=== PATIENT | female | born 1980 | race Caucasian/White ===

== ENCOUNTER 2018-11-20 13:35 | Emergency (ER) | payer BC ==
[~2018-11-20] VITALS: Ht 175.3 cm; Wt 88.6 kg
[~2018-11-20 13:35] MED LIST: SYNTHROID 0.10.15 MG PO
[2018-11-20 13:40] VITALS: TEMP 98.1
[2018-11-20] MEDS ORDERED: TIROSINT137 MC1 PO (14:21)
[2018-11-20 14:35] LABS: COLLECTION METHOD CLEAN CATCH
[2018-11-20 14:52] LABS: PH 8 (5-8); SQUAMOUS EPITHELIAL 0-2 /hpf; URINE APPEARANCE Clear; URINE BACTERIA Rare /hpf; URINE BILIRUBIN Negative (NEGATIVE); URINE BLOOD 2+ (NEGATIVE); URINE COLOR Straw; URINE GLUCOSE Negative (NEGATIVE); URINE KETONE Negative (NEGATIVE); URINE LEUKOCYTE ESTERASE Negative (NEGATIVE); URINE NITRATE Negative (NEGATIVE); URINE PROTEIN(semi-quant) Negative (NEGATIVE); URINE RBC 0-2 /hpf; URINE UROBILINOGEN Negative (NEGATIVE)
[2018-11-20 14:59] LABS: BASO % 0.6 % (0.0-2.0); EOS # 0.2 (0.0-0.7); EOS % 2.2 % (0-4.0); GRAN # 5.3 (1.4-6.5); GRAN % 73.1 % (42.2-75.2); HEMATOCRIT 40.3 % (37.0-47.0); HEMOGLOBIN 13.6 g/dl (12.5-16.0); LYMPH # 1.3 (1.2-3.4); LYMPH % 17.4 % (20.0-51.0); MEAN CELL VOLUME 92 fl (80.0-100.0); MEAN CORPUSCULAR HEMOGLOBIN 31 pg (27.0-31.0); MEAN CORPUSCULAR HGB CONC 34 g/dl (33.0-37.0); MEAN PLATELET VOLUME 11.9 fl (7.4-10.4); MONO # 0.5 (0.1-0.6); MONO % 6.6 % (1.7-9.3); PLATELET COUNT 189 K/mm3 (130-400); RED BLOOD COUNT 4.36 M/mm3 (4.10-5.30); REDCELL DISTRIBUTION WIDTH-CV 12.2 % (11.5-14.5)
[2018-11-20 15:17] LABS: ALBUMIN 3.9 gm/dL (3.5-5.0); BILIRUBIN,TOTAL 0.5 mg/dL (0.0-1.0); CALCIUM 9.1 mg/dL (8.4-10.2); CREATININE, serum 0.94 (0.52-1.25); POTASSIUM 4.1 mmol/L (3.4-5.0); TOTAL PROTEIN 6.6 gm/dL (6.4-8.2)
[2018-11-20 15:47] LABS: TSH w REFLEX 2.55 uIU/mL (0.465-4.680)
[2018-11-20 16:21] VITALS: BP 108/65; PULSE 62
[2018-11-20 22:35] LABS: TRICYCLIC ANTIDEPRESS URINE NEGATIVE
== END 2018-11-20 16:15 | disposition home or self-care (01) ==
LOC: COL.ER 13:35
PROVIDERS: Emergency Medicine
DX: R41.0 Disorientation, unspecified (principal); E03.9 Hypothyroidism, unspecified; G43.909 Migraine, unspecified, not intractable, without status migrainosus; F17.210 Nicotine dependence, cigarettes, uncomplicated; Z98.890 Other specified postprocedural states; Z87.81 Personal history of (healed) traumatic fracture

== ENCOUNTER 2018-11-23 00:32 | Emergency (ER) | payer BC ==
[~2018-11-23] VITALS: Ht 172.7 cm; Wt 90.9 kg
[~2018-11-23 00:32] MED LIST changes: +TIROSINT137 MC1 PO
[2018-11-23 00:40] VITALS: BP 132/86; TEMP 98
[2018-11-23 01:25] LABS: BASO % 0.5 % (0.0-2.0); EOS # 0.2 (0.0-0.7); EOS % 2.6 % (0-4.0); GRAN # 5.2 (1.4-6.5); GRAN % 62.4 % (42.2-75.2); HEMATOCRIT 41.9 % (37.0-47.0); HEMOGLOBIN 14.1 g/dl (12.5-16.0); LYMPH # 2.3 (1.2-3.4); LYMPH % 27.7 % (20.0-51.0); MEAN CELL VOLUME 92 fl (80.0-100.0); MEAN CORPUSCULAR HEMOGLOBIN 31 pg (27.0-31.0); MEAN CORPUSCULAR HGB CONC 34 g/dl (33.0-37.0); MEAN PLATELET VOLUME 11.4 fl (7.4-10.4); MONO # 0.6 (0.1-0.6); MONO % 6.6 % (1.7-9.3); PLATELET COUNT 226 K/mm3 (130-400); RED BLOOD COUNT 4.54 M/mm3 (4.10-5.30)
[2018-11-23 01:35] LABS: ALANINE AMINOTRANSFERASE < 6 U/L (9-52); ALBUMIN 4.3 gm/dL (3.5-5.0); ALKALINE PHOSPHATASE 45 U/L (50-136); ANION GAP 10 mmol/L (7-16); AST,SGOT 17 U/L (15-37); BILIRUBIN,TOTAL 0.2 mg/dL (0.0-1.0); BLOOD UREA NITROGEN 9 mg/dL (7-17); C-REACTIVE PROTEIN < 0.5 mg/dL (0.0-0.9); CALCIUM 9.2 mg/dL (8.4-10.2); CARBON DIOXIDE 26 mmol/L (22-30); CHLORIDE 104 mmol/L (98-107); CREATININE, serum 0.78 (0.52-1.25); GLUCOSE 86 mg/dL (74-106); POTASSIUM 3.9 mmol/L (3.4-5.0); SODIUM 140 mmol/L (137-145); TOTAL PROTEIN 7.4 gm/dL (6.4-8.2)
[2018-11-23 01:45] LABS: ERYTHROCYTE SEDIMENTATION RATE 7 mm/hr (0-20)
[2018-11-23 04:00] VITALS: PULSE 62
== END 2018-11-23 04:00 | disposition home or self-care (01) ==
LOC: COL.ER 00:32
PROVIDERS: Emergency Medicine
DX: G43.909 Migraine, unspecified, not intractable, without status migrainosus (principal); R27.0 Ataxia, unspecified
CPT/HCPCS: J1885; J7030; Q9967

== ENCOUNTER 2019-01-02 02:55 | Emergency (ER) | payer BC ==
[~2019-01-02] VITALS: Ht 172.7 cm; Wt 88.6 kg
[2019-01-02 03:01] VITALS: BP 150/93; PULSE 78; TEMP 97.8
[2019-01-02] MEDS ORDERED: NEURONTIN100 MG/CAP PO (03:19)
== END 2019-01-02 03:27 | disposition home or self-care (01) ==
LOC: COL.ER 02:55
DX: R20.2 Paresthesia of skin (principal)

== ENCOUNTER → 2019-01-13 | Outpatient (CLI) | payer BC ==
[~2019-01-13] MED LIST changes: +NEURONTIN100 MG/CAP PO
== END ==
LOC: COL.RAD 12-03 12:30 → MC.RAD 11:38 → COL.RAD 11:38
DX: Z12.31 Encounter for screening mammogram for malignant neoplasm of breast (principal)

== ENCOUNTER 2019-12-02 11:15 | Outpatient (RCR) | payer BC ==
[~2019-12-02 11:15] MED LIST changes: +MEDROL 4MG DOSPA4 MG PO; +NORCO 325 MG-51 TAB PO
== END 2019-12-24 | disposition still patient (30) ==
LOC: WSST
DX: R13.12 Dysphagia, oropharyngeal phase (principal); R49.0 Dysphonia

== ENCOUNTER → 2020-01-15 | Outpatient (CLI) | payer BC | LOC: MC.RAD 11:30 | DX: Z12.31 Encounter for screening mammogram for malignant neoplasm of breast (principal) ==

== ENCOUNTER 2020-10-10 05:30 | Emergency (ER) | payer BC ==
[~2020-10-10] VITALS: Ht 172.7 cm; Wt 90.9 kg
[2020-10-10 05:38] VITALS: BP 142/89; PULSE 73; TEMP 97.3
[2020-10-10] MEDS ORDERED: CLEOCIN HC150 MG/CAP PO ×3 (06:01→06:15)
== END 2020-10-10 06:26 | disposition home or self-care (01) ==
LOC: COL.ER 05:30
DX: L03.116 Cellulitis of left lower limb (principal); T50.995A Adverse effect of other drugs, medicaments and biological substances, initial encounter; X58.XXXA Exposure to other specified factors, initial encounter

== ENCOUNTER → 2021-03-01 | Outpatient (CLI) | payer BC ==
[~2021-03-01] MED LIST changes: +CLEOCIN HC150 MG/CAP PO
== END ==
LOC: MC.RAD 07:57
DX: Z12.31 Encounter for screening mammogram for malignant neoplasm of breast (principal)

== ENCOUNTER 2022-02-24 07:23 | Day surgery (SDC) | payer BC ==
[~2022-02-24] VITALS: Ht 172.7 cm; Wt 109.6 kg
[2022-02-24] MEDS ORDERED: TIROSINT137 MC1 PO (08:28)
[2022-02-24] MEDS ORDERED: NORVASC2.5 MG PO (08:28)
[2022-02-24] MEDS ORDERED: FLONASEALLERGY NS (08:29)
[2022-02-24] MEDS ORDERED: CEQUA1 EACH OP (08:29)
[2022-02-24] MEDS ORDERED: ATARAX 25MG25 MG/TAB PO (08:30)
[2022-02-24] MEDS ORDERED: MOBIC15 MG PO (08:31)
[2022-02-24] MEDS ORDERED: LAMICTAL 100MG100 MG PO (08:31)
[2022-02-24] MEDS ORDERED: BENEFIBER (08:32)
[2022-02-24] MEDS ORDERED: RESTORIL 1515 MG/CAP PO (08:32)
[2022-02-24] MEDS ORDERED: OMEGA-3 1000 MG1 CAP PO (08:33)
[2022-02-24] MEDS ORDERED: EFFEXOR 75M75 MG/TAB PO (08:33)
[2022-02-24 09:00] VITALS: BP 113/75; PULSE 62; TEMP 98.1
--- NOTE | 2022-02-24 09:00 | NUR ---
0900 PATIENT RETURNS TO ROOM 1 VIA CART. PATIENT WAS ASSISTED BACK TO RECLINER WITH THE ASSISTANCE OF NURSING STAFF. PATIENT IS ALERT AND ORIENTED, SLIGHTLY LETHARGIC D/T MEDICATION. RESPIRATIONS EVEN AND UNLABORED. VITAL SIGNS OBTAINED. PATIENT REFUSED ANYTHING TO EAT OR DRINK. 0915 THIS NURSE REVIEWED DISCHARGE INSTRUCTIONS WITH PATIENT. PATIENT SIGNED DC INSTRUCTIONS AND INSTRUCTIONS PUT IN FOLDER FOR PATIENT TO TAKE HOME WITH HER. 09 THIS NURSE DC IV FROM RIGHT HAND WITH NO DIFFICULTIES. 09 PATIENT DRESSES SELF INDEPENDENTLY. 09 DOCTOR IN TO SPEAK WITH PATIENT. 0935 PATIENT DISCHARGES FROM UNIT VIA WHEELCHAIR.
[2022-02-24 09:15] VITALS: BP 103/73; PULSE 62
[2022-02-24 09:24] VITALS: BP 129/78; PULSE 80
== END 2022-02-24 09:35 | disposition home or self-care (01) ==
LOC: SDCO 07:23
DX: R19.4 Change in bowel habit (principal); Z86.010 Personal history of colon polyps
CPT/HCPCS: J2704; J7120

== ENCOUNTER → 2022-03-23 | Outpatient (CLI) | payer BC ==
[~2022-03-23] MED LIST changes: +ATARAX 25MG25 MG/TAB PO; +BENEFIBER; +CEQUA1 EACH OP; +EFFEXOR 75M75 MG/TAB PO; +FLONASEALLERGY NS; +LAMICTAL 100MG100 MG PO; +MOBIC15 MG PO; +NORVASC2.5 MG PO; +OMEGA-3 1000 MG1 CAP PO; +RESTORIL 1515 MG/CAP PO
== END ==
LOC: MC.RAD 08:45
DX: Z12.31 Encounter for screening mammogram for malignant neoplasm of breast (principal)